=== PATIENT | male | born 2000 | race Caucasian/White ===

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

== ENCOUNTER 2020-03-08 02:48 | Emergency (ER) | payer OTHER, SELFPAY ==
--- NOTE | 2020-03-08 02:49 | RAD_ITS ---
STUDY: X-RAY - RIGHT HAND REASON FOR EXAM: Male, 19 years old. Punched a door -- c/o pain and swelling area of rt 4-5 metacarpals TECHNIQUE: 3 view(s) of the hand. COMPARISON: None. FINDINGS: There is an acute transverse fracture of the fourth and fifth metacarpal diaphysis with volar angulation of the distal fragments with adjacent soft tissue swelling. Normal radiocarpal articulation. Normal distal radioulnar joint. Normal visualized carpal bones. Normal carpal articulations Normal carpometacarpal articulation of the thumb. Normal second through fifth carpometacarpal joints. Otherwise normal metacarpi. Normal metacarpophalangeal joint of the thumb. Normal interphalangeal joint of the thumb. Normal proximal and distal phalanges of the thumb. Normal metacarpophalangeal joints of the second through fifth fingers. Normal proximal and distal interphalangeal joints of the second through fifth fingers. Normal phalanges of the second through fifth fingers. RAD/Hand Min 3 Views IMPRESSION: Acute angulated fourth and fifth metacarpal diaphyseal fracture with adjacent soft tissue swelling. Electronically Signed: Sarika Chowdhury MD at 3:18 EST , Service support ,
[2020-03-08 02:50] VITALS: BP 133/83; PULSE 83; RESP 16; TEMP 36.5; O2SAT 98; BMI 26.6
--- NOTE | 2020-03-08 02:52 | ED.VIS.GEN ---
History of Present Illness Chief Complaint: Upper Extremity Injury Informant: Patient Onset: Today Context: Sudden Onset Timing: Continuous Current Severity: Moderate Maximum Severity: Moderate Narrative: Patient is a [id number]-owacdhph male who presents to the emergency department for right hand injury. Patient states he was drinking with friends. He states they were messing around. He punched at a door. He ended up hitting the dorsum of his hand. Since then, has had pain in the hand. He denies any history of prior fracture. He is otherwise been in his normal state of health. Prior similar symptoms: No Recent Illness/Hospitalization: No Past Medical History - Allergies and Home Meds Allergies/Adverse Reactions: Allergies No Known Allergies Allergy (Verified 03/08/20 02:49) Primary Care Physician: Mariusz Linares DO [STAFF PHYSICIAN] - Prior records reviewed: Yes Past Medical History: None Surgical History: no surgical history Review of Systems General: Denies: Chills, Fever, Sweats Eyes: Denies: Visual changes - bilaterally, Diplopia ENT: Denies: Rhinorrhea, Sore throat Cardiovascular: Denies: Chest pain, Palpitations Respiratory: Denies: Dyspnea, Cough, Dyspnea on exertion Gastrointestinal: Denies: Abdominal pain, Nausea, Vomiting, Diarrhea, Melena, Hematochezia Genitourinary: Denies: Dysuria, Hematuria, Frequency Musculoskeletal: Denies: Back pain, Extremity Pain Skin: Denies: Rash, Wounds Neurological: Denies: Headache, Weakness, Numbness Physical Exam Inital Vital Signs reviewed: Yes General: Well nourished, Well developed, No Acute Distress Head: Normocephalic, Atraumatic Eyes: Perrl, EOMI ENT: Moist mucous membranes, No rhinorrhea Neck: Supple, Nontender Cardiovascular: Regular rate, Regular rhythm, No murmurs Respiratory: No distress, CTA bilaterally, Chest nontender Abdomen: Soft, Nontender, Nondistended, Normal bowel sounds Back: Nontender, Normal Inspection Extremities: No edema, Tenderness - Tenderness over the dorsum of the right hand at the fourth and fifth metacarpals. No rotational deformity. Small contusion. Skin: Normal color, No rash Neurological: Alert, Oriented x3, Cranial nerves II-XII grossly intact, Normal Strength, Normal Sensation Psychological: Normal affect, Normal Mood Diagnostic/Tx/Re-eval Clinical Impression(s) from Imaging Studies Hand X-Ray 03/08/20 02:49 IMPRESSION: Acute angulated fourth and fifth metacarpal diaphyseal fracture with adjacent soft tissue swelling. Electronically Signed: Sarika Chowdhury MD at 3:18 EST , Service support , Hand X-Ray 03/08/20 03:29 IMPRESSION: No significant change when angulated acute fracture of the fourth and fifth carpal diaphyses. Electronically Signed: Sarika Chowdhury MD at 3:50 EST , Service support , - Medical Decision Making Patient presents with right hand injury. X-rays were obtained. He does have midshaft dorsally displaced fractures of the fourth and fifth. He is neurovascular intact. The area was cleaned with chlorhexidine. Hematoma block was performed of both fracture sites. Once anesthesia was achieved, the fracture was reduced and the patient was placed in a plaster splint. The fracture was very mobile. When I placed the patient in flexion of an ulnar gutter, it did displace and this was visible on the repeat x-ray. Because of this, the splint was taken down. He was rereduced and placed in a splint. I did try to take care to not place him into significant flexion because that seem to destabilize the fracture. The angulation had improved, but it was still a very mobile fracture site. My suspicion is this is likely going to need orthopedic intervention. Again, the patient is neurovascular intact. He will be discharged to follow-up with orthopedics for reevaluation and potential operative intervention. Impression 1. Closed midshaft right fourth and fifth metacarpal fracture 2. Hematoma block 3. Splint by ED physician ED Disposition - Plan for ED Patient: Instructions: ED Fx Yuniel Referrals: Mariusz Linares DO [STAFF PHYSICIAN] -
--- NOTE | 2020-03-08 03:29 | RAD_ITS ---
STUDY: X-RAY - RIGHT HAND REASON FOR EXAM: Male, 19 years old. POST REDUCTION TECHNIQUE: 3 view(s) of the hand. COMPARISON: 03/08/2020 0256 hours FINDINGS: No significant change fourth and fifth volar angulated fracture of the metacarpal diaphysis. Superimposed cast material. No other significant interval change. RAD/Hand Min 3 Views IMPRESSION: No significant change when angulated acute fracture of the fourth and fifth carpal diaphyses. Electronically Signed: Sarika Chowdhury MD at 3:50 EST , Service support ,
--- NOTE | 2020-03-08 03:52 | RAD_ITS ---
STUDY: X-RAY - RIGHT HAND REASON FOR EXAM: Male, 19 years old. POST REDUCTION-2ND ATTEMPT TECHNIQUE: 3 view(s) of the hand. COMPARISON: None. FINDINGS: There is decreased volar angulation of the fourth and fifth mid metacarpal fracture since the first post reduction attempt. RAD/Hand Min 3 Views IMPRESSION: Improved alignment with decreased volar angulation. Electronically Signed: Sarika Chowdhury MD at 4:13 EST , Service support ,
[2020-03-08] MEDS: Bupivacaine Mpf 0.5% 30 ML VIAL INFILT (04:08)
== END 2020-03-08 04:09 | disposition home or self-care (01) ==
LOC: ED 03:18
PROVIDERS: Emergency Provider Emergency Medicine; PCP Family Medicine
DX: S62.324A Displaced fracture of shaft of fourth metacarpal bone, right hand, initial encounter for closed fracture (principal); S62.326A Displaced fracture of shaft of fifth metacarpal bone, right hand, initial encounter for closed fracture; W22.09XA Striking against other stationary object, initial encounter; Y93.9 Activity, unspecified; Y92.9 Unspecified place or not applicable; Y99.9 Unspecified external cause status
CPT/HCPCS: 26605 ×2; 73130; 99282

== ENCOUNTER 2020-04-21 14:30 | Outpatient (RCR) | payer OTHER, SELFPAY ==
--- NOTE | 2020-03-25 09:13 | HP.OTEVAL ---
Patient's Visit Information BENIGNO CLARK is a 19 year old M, referred to Occupational Therapy by YEN BOWER, with a diagnosis of right Metacarpal 4th and fith shapft fx. Date of Evaluation: 03/20/20 Occupational Therapist: Jayla Haywood, OTR/[place], CHT - Subjective This 19-year-old male was seen for OT eval with dx of right 4th & 5th metacarpal non-displaced fx. pt states on 2019. while using his punching bag he ended up hitting a metal door. Went to ER- x-rays taken determining at that time pts fx. pt states sx was Friday. pt had ORIF both 4th &5th. Pt arrives today for custom orthosis to provide protection and support while fx is healing. Pt is right handed and limited with ADLs and IADLS at this time. - Pain right hand 2 - ROM MP: right LF 0/20 RF -15/35 left RF 0/80 RF 0/90 PIP: right LF -15/75 RF -15/75 left RF 0/100 LF 0/100 DIP: right LF 0/55 RF 0/40 left RF 0/65 LF 0/70 ROM Comments: pt demo with limited functional ROM of right hand- pt is right hand dominant - Strength Sales And Business Development Manager: right NT left 90# Lateral Pinch: right NT left 22# Tripod Pinch: right NT Left 24# Tip-to-Tip Pinch: right NT left 10# Strength Comments: therapist will test right ict project manager strength at later date. - Edema Wrist: right 16.5cm left 15.5cm Other: MCP 22cm left 20cm - Sensation Sensation Comments: denies - Quick DASH-Disab of Arm,Shoulder& Hand Quick DASH Score: [phone] - Goals Goal:: after 8 weeks of healing pt will demo a right ict project manager strength to 50# or greater to return pt to PLOF by d/c Goal:: pt will demo the ability to form right composite fist and full digit ext by d/c to return pt to PLOF with ADls and IADLs by d.c Goal:: Pt will report pain no greater than 1/10 with use of affected hand with BADLs and IADLs by d/c. Goal:: pt will demo a reduction in wrist/ MCP edema by 2cm Goal:: Pt will demo understanding of scar mtg. by end of 2nd session to increase tissue extensibility to limit scar adhesions and allow full tendons function by d/c. Goal:: Pt will demo understanding of orthosis use and precautions by end of 1st session. Pt will return to clinic for orthosis adjustment. - Rehabilitation General Assessment: pt is 3 days s/p from ORIF of right LF and RF and in need of custom orthosis to place right hand in safe position. PT currently limited with digt ROM and the ability to use right hand for ADls and IADLs. Pt would benefit from skilled OT services 1-2x week for 4 weeks.therapy will foucse on return of Pts ROM/ strength to perform ADls and IADLS at IND. Level. today therapsit kezia. custom orthosis placeing right hand in save position- ed. pt on orthosis use and skin care precautions as well as edema control and ROM exercises. pt demo understanding and agree to POC. Rehabilitation Potential: Good - Anticipated Interventions A/AAROM/PROM, Strengthening, Edema Control, Scar Care, Triggerpoint Release, Desensitization, Modalities, Orthoses, Joint Protection/Energy Conservation, Ergonomic Education - Visit Plan Frequency: 1-2x /Week Duration: 6 Weeks TEXT: Thank you for the opportunity to evaluate your patient. For Medicare and Medicare HMO plans, please review the plan of care and approve it. It will need to be FAXED BACK to us at [phone] for Medicare purposes. Please let me know if there are questions or concerns regarding this plan of care. Physician Signature: Date:
== END 2020-04-21 19:00 | disposition home or self-care (01) ==
LOC: OT 14:30
PROVIDERS: PCP Family Medicine
DX: S62.342D Nondisplaced fracture of base of third metacarpal bone, right hand, subsequent encounter for fracture with routine healing (principal); S62.326D Displaced fracture of shaft of fifth metacarpal bone, right hand, subsequent encounter for fracture with routine healing
CPT/HCPCS: 97110; 97140; 97166; 97760; 97763